=== PATIENT | female | born 1980 | race Two or more races ===

== ENCOUNTER → 2017-12-26 | Outpatient (CLI) | payer OTHER | LOC: FIMAGING 09:16 | PROVIDERS: ATTEND Obstetrics & Gynecology | DX: O09.512 Supervision of elderly primigravida, second trimester (principal); Z3A.24 24 weeks gestation of pregnancy ==

== ENCOUNTER → 2018-02-10 | Outpatient (CLI) | payer OTHER | LOC: FIMAGING 10:30 | PROVIDERS: ATTEND Obstetrics & Gynecology | DX: O09.523 Supervision of elderly multigravida, third trimester (principal); Z3A.30 30 weeks gestation of pregnancy; O99.113 Other diseases of the blood and blood-forming organs and certain disorders involving the immune mechanism complicating pregnancy, third trimester; D68.59 Other primary thrombophilia; Z79.01 Long term (current) use of anticoagulants ==

== ENCOUNTER → 2018-03-17 | Outpatient (CLI) | payer OTHER | LOC: FIMAGING 15:05 | PROVIDERS: ATTEND Obstetrics & Gynecology | DX: O09.523 Supervision of elderly multigravida, third trimester (principal); O40.3XX0 Polyhydramnios, third trimester, not applicable or unspecified; O09.293 Supervision of pregnancy with other poor reproductive or obstetric history, third trimester; O99.113 Other diseases of the blood and blood-forming organs and certain disorders involving the immune mechanism complicating pregnancy, third trimester; D68.59 Other primary thrombophilia; Z3A.35 35 weeks gestation of pregnancy ==

== ENCOUNTER 2018-04-01 12:50 | Observation (INO) | payer OTHER | END 2018-04-01 15:10 | disposition home or self-care (01) | LOC: FLD 12:50 | PROVIDERS: ADMIT Obstetrics & Gynecology; ATTEND Obstetrics & Gynecology | DX: Z03.89 Encounter for observation for other suspected diseases and conditions ruled out (principal); Z3A.37 37 weeks gestation of pregnancy | CPT/HCPCS: 59025; G0378 ==

== ENCOUNTER 2018-04-02 09:30 | Inpatient (IN) | payer OTHER ==
[2018-04-02] MEDS ORDERED: AMMONIA AROMATIC 1 EACH AMP IH PRN (11:06)
[2018-04-02] MEDS ORDERED: LR 1,000 ML IV PRN (11:06)
[2018-04-02] MEDS ORDERED: IBUPROFEN 600 MG TAB PO PRN (11:06)
[2018-04-02] MEDS ORDERED: LIDOCAINE 1% 300 MG/30 ML SDV SC PRN (11:06)
[2018-04-02] MEDS ORDERED: OXYTOCIN/RINGERS LACTATE 1,000 ML IV PRN (11:06)
[2018-04-02] MEDS ORDERED: EPSOM SALT 454 GM TP PRN (11:06)
[2018-04-02] MEDS ORDERED: MISOPROSTOL 200 MCG TAB PO PRN (11:06)
[2018-04-02] MEDS ORDERED: OLIVE OIL 118 ML BTL MISC PRN (11:06)
[2018-04-02] MEDS ORDERED: TERBUTALINE SULFATE 1 MG/ML VIAL IV PRN (11:06)
--- NOTE | 2018-04-02 11:06 | PDGENHP ---
History and Physical - Chief Complaint PPROM - History of Present Illness Cielo is a 37 yo today at 37w6d by ANH of 04/17/18 based on IVF transfer. She was sent over from clinic today with gross ROM with clear fluid - it sounds like she likely actually had her water break at 0600 yesterday AM but then had a false-negative Amnissure here on L&D yesterday and was sent home. Subjectively feeling fine - denies fevers or chills, baby is moving, sensing irregular/rare contractions. She has protein C deficiency and has been on Lovenox 40mg BID throughout until being transitioned to BID heparin at 36 wks. She skipped her morning dose of heparin this morning, so her last dose was at 2000 on 04/01/17. She was recently evaluated by MFM at 35 wks regarding new macrosomia EFW 91% (symmetric) and was also found to have new polydramnios with an CECILIA of 27. That CECILIA was repeated in our office last week and was down to 23. On that MFM US there was also renal pyelectasis. Other issues of this : Macrosomia Anxiety Polyhydramnios Protein C deficiency Recurrent loss IVF Erythema multiforme HSV1 labs: A positive AB negative RPR NR Rubella immune Hep B neg HIV neg Trio neg 2011 Standard panel neg TSH WNL 1st tri Hep C ab neg Varicella IMMUNE Innatal Normal Glucola 131, Passed 3 hr GTT History Information - Allergies/Home Medication List Allergies/Adverse Reactions: No Known Allergies Allergy (Verified 10/07/13 12:04) Home Medications: Vit27&Calcium/Iron/FA [] 1 tab PO DAILY@04/27/13 [Last Taken 10/06/13 08:00] Aspirin 81mg (OTC) 81 mg PO DAILY 10/07/13 [Last Taken 04/01/18 81] Herbals/Supplements -Info Only 10/07/13 [Last Taken 10/06/13 08:00] Vit D3/Folic Acid/B2/B6/B12 1,000 iunits PO DAILY 10/07/13 [Last Taken 10/06/13 08:00] Citalopram Hydrobromide [celeXA 10 MG] 1 tab PO DAILY@04/01/18 [Last Taken Unknown] Cyanocobalamin (Vitamin B-12) [Vitamin B12] 1 tab PO DAILY 04/01/18 [Last Taken Unknown] Ferrous Gluconate [Iron] 240 mg PO DAILY 04/01/18 [Last Taken Unknown] Heparin 1,000 Unit/10 (100/ml) 10,000 units SQ BID 04/01/18 [Last Taken 04/01/18 ] Omeprazole Magnesium [Prilosec] 10 mg PO DAILY 04/01/18 [Last Taken Unknown] Valacyclovir HCl [Valtrex] 1 tab PO BID 04/01/18 [Last Taken Unknown] I have personally reviewed and updated: family history, medical history, social history, surgical history Past Medical History: HSV1, Erythema multiforme, Recurrent loss, Protein C deficiency (dx 2012), IVF, AMA - Surgical History Additional surgical history: D&C x 4, ACL/MCL, Hysteroscopy - Family History Positive for: non-pertinent - Social History Smoking Status: Never smoked Alcohol Use: None 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 Clear fluid, reactive baby, no s/sx of chorioamnionitis. IOL: Discussed options for IOL, will start with oral Cytotec 50mcg q 4 hrs per protocol. Closed and long at last check in the office. Protein C deficiency: Last dose of heparin was 1999 on 04/01/18 - will be 24 hrs s /p her last dose this evening so probably OK for regional anesthesia, will check coags on the way in today. Per recent MFM consult - May not need PP Lovenox as long as new risk factors (infection, Csection, PIH, etc) don't present themselves during labor and delivery. Polyhydramnios: Failed Glucola and passed 3 hr GTT. Clear fluid thus far, head well engaged. HSV1: Continue Valtrex BID suppression. 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 IVF : Normal echo. Anxiety: Celexa 10mg qHS. Suspected macrosomia: EFW 91% at 35 wks. pyelectasis: 7.8mm on 35 wk scan, MFM recommended US and peds urology consult if needed after . LAURA
[2018-04-02] MEDS: MISOPROSTOL 50 MCG CAP PO PRN ×2 (12:24→16:33)
[2018-04-02 13:01] LABS: PLATELET COUNT 208 10^3/uL (150-400)
[2018-04-02 13:29] LABS: INR 1.02 (0.83-1.16); PROTIME(PATIENT) 13.6 SEC (12.0-15.0)
[2018-04-02 14:32] LABS: PLATELET COUNT 208 10^3/uL (150-400)
[2018-04-02] MEDS ORDERED: LIDOCAINE 1% 300 MG/30 ML SDV ONE (14:46)
[2018-04-02] MEDS ORDERED: OLIVE OIL 118 ML BTL ONE (14:46)
[2018-04-02] MEDS ORDERED: MISOPROSTOL 200 MCG TAB ONE (14:47)
[2018-04-02] MEDS ORDERED: AMMONIA AROMATIC 1 EACH AMP IH ONE (14:47)
[2018-04-02] MEDS ORDERED: TERBUTALINE SULFATE 1 MG/ML VIAL ONE (14:47)
[2018-04-02] MEDS ORDERED: OXYTOCIN 10 UNIT/ML VIAL ONE (14:47)
[2018-04-02] MEDS: valACYclovir 500 MG TAB PO SCH (20:43)
[2018-04-02] MEDS: PRENATAL VIT 1 EACH TAB PO SCH (20:57)
[2018-04-02] MEDS: CITALOPRAM 20 MG TAB PO SCH (20:58)
[2018-04-02] MEDS ORDERED: ZOLPIDEM TARTRATE 5 MG TAB PO PRN (21:30)
[2018-04-02] MEDS ORDERED: LR 500 ML IV PRN (21:38)
[2018-04-02] MEDS: FAMOTIDINE 20 MG TAB PO SCH (21:52)
[2018-04-03] MEDS ORDERED: OXYTOCIN/RINGERS LACTATE 500 ML IV SCH (05:00)
[2018-04-03] MEDS ORDERED: CALCIUM CARBONATE 500 MG CHEWABLE TAB PO ONE ×2 (05:00→22:00)
[2018-04-03] MEDS: ONDANSETRON 4 MG/2 ML VIAL IVP PRN ×2 (07:31→17:39)
[2018-04-03] MEDS: FAMOTIDINE 20 MG TAB PO SCH ×2 (10:05→13:27)
--- NOTE | 2018-04-03 10:33 | OBPROG ---
Labor Progress Note Assessment/Plan: Assessment: 37 y/o at 38 weeks with prolonged ROM for approximately 52 hours now for IOL Plan: Pt is s/p Cytotec x 3 doses Pitocin currently at 12 mu, cont per protocol SVE: 1cm/50/-1, head well applied Pt is afebrile at this time and no s/sx of chorioamnionitis Pt is getting minimal relief with Nitrous Pt with Protein C def and last dose of Heparin 1999 on 04/01, okay for regional anesthesia; pt is requesting epidural at this time Per recent MFM consult - pt may not need PP Lovenox as long as new risk factors (infection, , PIH, etc) don't present themselves during labor and delivery FHTs - Category I tracing, will cont to closely monitor GBS cx is negative, no prophylaxis abx needed 04/03/18 10:42 Subjective/Intrapartum Course: 04/03/18 10:35 Pt is breathing through her ctx's and states minimal relief with Nitrous. Most of her pain is in her back and hips, pain 7-8/10. She is requesting an epidural at this time. Objective: 04/02/18 12:20 Patient ABO/Rh A POSITIVE 04/02/18 12:20 - SVE Dilation (cm): 1 Effacement (%): 50 Station: -1 Membranes: SROM Amniotic Fluid Color: Clear - Contraction Pattern Assessment Current Contraction Pattern: Regular (q 2-4 min) - FHR Assessment Guzman FHR (bpm): 150 FHR Pattern Variability: Moderate FHR Category: 1 - AP Antepartum Course: 04/03/18 10:43 Protein C deficiency: Last dose of heparin was 1999 on 04/01/18 - will be 24 hrs s /p her last dose this evening so probably OK for regional anesthesia, will check coags on the way in today. Per recent MFM consult - May not need PP Lovenox as long as new risk factors (infection, Csection, PIH, etc) don't present themselves during labor and delivery. Polyhydramnios: Failed Glucola and passed 3 hr GTT. HSV1: Valtrex BID suppression. 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 IVF : Normal echo. Anxiety: Celexa 10mg qHS. Suspected macrosomia: EFW 91% at 35 wks. pyelectasis: 7.8mm on 35 wk scan, MFM recommended US and peds urology consult if needed after . Oxytocin Orders Assessment - Pre-Induction/Augmentation Assessment Gestational Age: 37 week(s) and 6 day(s) ICD10 Worksheet Patient Problems: Problems Problem Status Onset Prolonged rupture of membranes Acute - ICD10 Problem Qualifiers (1) Prolonged rupture of membranes
[2018-04-03] MEDS ORDERED: PHENYLEPHRINE HCL 100 MCG/ML SYR IVP PRN (10:41)
--- NOTE | 2018-04-03 10:41 | PREANESOB ---
Obstetric Pre-Anesthesia Info - General Info : 6 Para: 0 ANH: 04/17/18 Gestational Age: 37 week(s) and 6 day(s) - Labor Status Cervical Dilation per last OB SVE: 1 Station per last OB SVE: -1 Amniotic Fluid Color: Clear Pitocin: In Use Labor Epidural: Proposed Anesthesia Allergies/Adverse Reactions: Allergy/AdvReac Type Severity Reaction Status Date / Time No Known Allergies Allergy Verified 10/07/13 12:04 Home Medications: Medication Instructions Recorded Vit27&Calcium/Iron/FA 1 tab PO DAILY@04/27/13 [] Aspirin 81mg (OTC) 81 mg PO DAILY 10/07/13 Herbals/Supplements -Info Only 10/07/13 Vit D3/Folic Acid/B2/B6/B12 1,000 iunits PO DAILY 10/07/13 Citalopram Hydrobromide [celeXA 10 1 tab PO DAILY@04/01/18 MG] Cyanocobalamin (Vitamin B-12) 1 tab PO DAILY 04/01/18 [Vitamin B12] Ferrous Gluconate [Iron] 240 mg PO DAILY 04/01/18 Heparin 1,000 Unit/10 (100/ml) 10,000 units SQ BID 04/01/18 Omeprazole Magnesium [Prilosec] 10 mg PO DAILY 04/01/18 Valacyclovir HCl [Valtrex] 1 tab PO BID 04/01/18 Visit Medications: Generic Name Dose Route Start Last Admin Trade Name Freq PRN Reason Stop Dose Admin Acetaminophen 1,000 mg 04/03/18 10:38 Tylenol PO 09/30/18 10:37 Q6HRS PRN Pain, Mild/Fever, Can Take PO Ammonia (Aromatic Spirit) 1 each 04/02/18 11:06 Ammonia Aromatic IH 04/12/18 11:05 ONCE PRN Fainting Citalopram Hydrobromide 10 mg 04/02/18 21:00 04/02/18 20:58 Celexa PO 09/29/18 20:59 10 mg DAILY@2100 RELL Administration Famotidine 20 mg 04/02/18 21:45 04/03/18 10:05 Pepcid PO 09/29/18 21:44 Not Given DAILY RELL Lactated Ringer's 1,000 mls @ 0 mls/hr 04/02/18 11:06 04/03/18 05:31 Lr IV 04/03/18 11:05 1,000 mls PRN PRN Administration SEE PROTOCOL CONDITIONS Protocol Per Protocol Oxytocin/Lactated Ringer's 1,000 mls @ 0 mls/hr 04/02/18 11:06 Pitocin 20 Units/Lr (Premix) IV PRN PRN Post bleeding As Directed Lactated Ringer's 500 mls @ 500 mls/hr 04/02/18 21:38 Lr IV 04/03/18 21:38 PRN PRN Maternal Hypotension Oxytocin/Lactated Ringer's 500 mls @ 0 mls/hr 04/03/18 05:00 04/03/18 05:30 Pitocin 30 Units/Lr (Premix) IV 09/30/18 04:59 500 mls CONT RELL Administration Protocol Per Protocol Ibuprofen 600 mg 04/02/18 11:06 Motrin PO ONCE PRN post , pain Lidocaine HCl 300 mg 04/02/18 11:06 Lidocaine Hcl 1% SC 09/29/18 11:05 ONCE PRN episiotomy Magnesium Sulfate 454 gm 04/02/18 11:06 Epsom Salt TP 09/29/18 11:05 Q1H PRN perineal discomfort Misoprostol 800 - 1,000 mcg 04/02/18 11:06 Cytotec PO 09/29/18 11:05 ONCE PRN Vaginal Atony/Bleeding Misoprostol 50 mcg 04/02/18 11:13 04/02/18 16:33 Cytotec PO 09/29/18 11:12 50 mcg Q4HRS PRN Administration Achieve Desired Sedation Plover Oil 118 ml 04/02/18 11:06 Sweet Oil MISC 09/29/18 11:05 ONCE PRN perineal massage Ondansetron HCl 4 mg 04/03/18 07:24 04/03/18 07:31 Zofran IVP 09/30/18 07:23 4 mg Q4HRS PRN Administration Nausea/Vomiting, Can't Take PO Prenat Multivit/Telephone Lines Repairer/Iron/Folic Ac 1 each 04/02/18 21:00 04/02/18 20:57 PO 09/29/18 20:59 1 each DAILY@2100 RELL Administration Terbutaline Sulfate 0.25 mg 04/02/18 11:06 Brethine IV 09/29/18 11:05 ONCE PRN Tachysystole Valacyclovir HCl 1,000 mg 04/02/18 21:00 04/02/18 20:43 Valtrex PO 05/02/18 20:59 1,000 mg BID RELL Administration Zolpidem Tartrate 5 mg 04/02/18 21:30 04/02/18 21:53 Ambien PO 09/29/18 21:29 5 mg HS PRN Administration Sleep/Insomnia Discontinued Medications Generic Name Dose Route Start Last Admin Trade Name Osiris PRN Reason Stop Dose Admin Ammonia (Aromatic Spirit) Confirm 04/02/18 14:47 Ammonia Aromatic Administered 04/02/18 14:48 Dose 1 each IH .STK-MED ONE Calcium Carbonate 1,000 mg 04/03/18 05:00 04/03/18 05:09 Tums PO 04/03/18 05:01 1,000 mg ONCE ONE Administration Lidocaine HCl Confirm 04/02/18 14:46 Lidocaine Hcl 1% Administered 04/02/18 14:47 Dose 300 mg .ROUTE .STK-MED ONE Misoprostol Confirm 04/02/18 14:47 Cytotec Administered 04/02/18 14:48 Dose 1,000 mcg .ROUTE .STK-MED ONE Plover Oil Confirm 04/02/18 14:46 Sweet Oil Administered 04/02/18 14:47 Dose 118 ml .ROUTE .STK-MED ONE Oxytocin Confirm 04/02/18 14:47 Pitocin Administered 04/02/18 14:48 Dose 40 unit .ROUTE .STK-MED ONE Terbutaline Sulfate Confirm 04/02/18 14:47 Brethine Administered 04/02/18 14:48 Dose 1 mg .ROUTE .STK-MED ONE - Anesthesia History Response to Local Anesthetics: Normal Anesthesia & Operative History: No Prior Problems - Vital Signs Height/Weight (Nursing): Height 160.02 cm Weight 62.596 kg - Focused Exam Neck exam: FROM Mallampati Score: Class 1 Mouth exam: normal dental/mouth exam Pulmonary: no respiratory distress Cardiovascular: regular rate and rhythym Labs: 04/02/18 12:20 Patient ABO/Rh A POSITIVE 04/02/18 12:20 - Plan Consent Signed and on Chart: Yes Patient/Guardian Understands and Agrees to Plan: Yes Urgent/Emergent Case: Juancarlos power completed preop but documented later for safe timely pt care (Pt had heparin stop >36 hours.)
[2018-04-03] MEDS ORDERED: fentaNYL 100 MCG/2 ML INJ ONE (10:45)
[2018-04-03] MEDS ORDERED: BUPIVACAINE 0.25% 10 ML SDV ONE (10:46)
[2018-04-03] MEDS ORDERED: fentaNYL 2MCG/ML/BUP 0.1% RTU 100 ML EP SCH (11:00)
[2018-04-03] MEDS ORDERED: FAMOTIDINE 20 MG TAB PO SCH (11:00)
[2018-04-03] MEDS ORDERED: LR 500 ML IV SCH (11:00)
[2018-04-03] MEDS: valACYclovir 500 MG TAB PO SCH (12:31)
[2018-04-03] MEDS: ACETAMINOPHEN 500 MG TAB PO PRN ×2 (12:35→18:46)
--- NOTE | 2018-04-03 13:12 | OBPROG ---
Labor Progress Note Assessment/Plan: Assessment: 37 y/o at 38 weeks with prolonged ROM for approximately 55 hours now for IOL Plan: Pt is s/p epidural and comfortable at this time Pitocin currently at 18 mu, cont per protocol Pt remains afebrile and no s/sx of chorioamnionitis FHTs - Category II tracing with intermittent late decels, likely secondary to epidural and HOTN-pt received phenylephrine x 2 Will cont to closely monitor Plan to reexamine in a few hours and hopefully can place an IUPC to monitor for labor adequacy 04/03/18 13:07 Subjective/Intrapartum Course: 04/03/18 10:35 Pt is breathing through her ctx's and states minimal relief with Nitrous. Most of her pain is in her back and hips, pain 7-8/10. She is requesting an epidural at this time. 04/03/18 13:12 Pt is comfortable, s/p epidural with no complaints Objective: 04/02/18 12:20 Patient ABO/Rh A POSITIVE 04/02/18 12:20 - SVE Membranes: SROM Amniotic Fluid Color: Clear - Contraction Pattern Assessment Current Contraction Pattern: Irregular (q3-8 min) - FHR Assessment Guzman FHR (bpm): 140 FHR Pattern Variability: Moderate FHR Category: 2 (intermittent late decels after epidural lasting x 20-30 sec with amanda 100 bpm) - AP Antepartum Course: 04/03/18 10:43 Protein C deficiency: Last dose of heparin was 2000 on 04/01/18 - will be 24 hrs s /p her last dose this evening so probably OK for regional anesthesia, will check coags on the way in today. Per recent MFM consult - May not need PP Lovenox as long as new risk factors (infection, Csection, PIH, etc) don't present themselves during labor and delivery. Polyhydramnios: Failed Glucola and passed 3 hr GTT. HSV1: Valtrex BID suppression. 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 IVF : Normal echo. Anxiety: Celexa 10mg qHS. Suspected macrosomia: EFW 91% at 35 wks. pyelectasis: 7.8mm on 35 wk scan, MFM recommended US and peds urology consult if needed after . Oxytocin Orders Assessment - Pre-Induction/Augmentation Assessment Gestational Age: 37 week(s) and 6 day(s) ICD10 Worksheet Patient Problems: Problems Problem Status Onset Prolonged rupture of membranes Acute - ICD10 Problem Qualifiers (1) Prolonged rupture of membranes
--- NOTE | 2018-04-03 17:27 | OBPROG ---
Labor Progress Note Assessment/Plan: Assessment: 37 y/o at 38 weeks with prolonged ROM for IOL Plan: Pitocin currently at 30 mu/min SVE 3/70/0; forebag noted-pinkish fluid; IUPC placed Pt remains afebrile and no s/sx of chorioamnionitis at this time FHTs - Category II tracing, overall reassuring-there was one decel noted during maternal position change and again 15 minutes after ROM-forebag Will cont to closely monitor Pt may eat something light 04/03/18 17:32 Subjective/Intrapartum Course: 04/03/18 10:35 Pt is breathing through her ctx's and states minimal relief with Nitrous. Most of her pain is in her back and hips, pain 7-8/10. She is requesting an epidural at this time. 04/03/18 13:12 Pt is comfortable, s/p epidural with no complaints 04/03/18 17:26 Pt doing well, no complaints. She would like something to eat Objective: 04/02/18 12:20 Patient ABO/Rh A POSITIVE 04/02/18 12:20 - SVE Dilation (cm): 3 Effacement (%): 75 (70) Station: 0 Membranes: SROM Amniotic Fluid Color: Clear - Contraction Pattern Assessment Current Contraction Pattern: Irregular (q2 -6 min) - FHR Assessment Guzman FHR (bpm): 155 FHR Pattern Variability: Moderate FHR Category: 2 (decel noted about 10 minutes after rupture of forebag and IUPC placed; decel x 30 sec with amanda 60 bpm) - Procedures Non-surgical Procedures: Amniotomy (of forebag) - AP Antepartum Course: 04/03/18 10:43 Protein C deficiency: Last dose of heparin was 1999 on 04/01/18 - will be 24 hrs s /p her last dose this evening so probably OK for regional anesthesia, will check coags on the way in today. Per recent MFM consult - May not need PP Lovenox as long as new risk factors (infection, Csection, PIH, etc) don't present themselves during labor and delivery. Polyhydramnios: Failed Glucola and passed 3 hr GTT. HSV1: Valtrex BID suppression. 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 IVF : Normal echo. Anxiety: Celexa 10mg qHS. Suspected macrosomia: EFW 91% at 35 wks. pyelectasis: 7.8mm on 35 wk scan, M recommended US and peds urology consult if needed after . Oxytocin Orders Assessment - Pre-Induction/Augmentation Assessment Gestational Age: 37 week(s) and 6 day(s) ICD10 Worksheet Patient Problems: Problems Problem Status Onset Prolonged rupture of membranes Acute - ICD10 Problem Qualifiers (1) Prolonged rupture of membranes
[2018-04-03] MEDS: PRENATAL VIT 1 EACH TAB PO SCH (23:31)
[2018-04-04] MEDS: ACETAMINOPHEN 500 MG TAB PO PRN (01:59)
--- NOTE | 2018-04-04 02:10 | OBPROG ---
Labor Progress Note Assessment/Plan: Assessment: 37 y/o at 38 1/7 weeks with prolonged ROM for IOL Plan: Pitocin is currently at 40 mu/min SVE: 5/90/0; forebag noted; IUPC removed and AROM of forebag with clear fluid Dysfunctional uterine pattern noted, no adequate labor yet despite Pitocin at 40 mu New IUPC placed Will turn Pitocin down in half and start from there Pt remains afebrile and no s/sx of chorioamnionitis at this time FHTs - Category II tracing with intermittent mild variable decels, overall reassuring Will recheck in 2 hours for cervical change 04/04/18 02:05 Subjective/Intrapartum Course: 04/03/18 10:35 Pt is breathing through her ctx's and states minimal relief with Nitrous. Most of her pain is in her back and hips, pain 7-8/10. She is requesting an epidural at this time. 04/03/18 13:12 Pt is comfortable, s/p epidural with no complaints. 04/03/18 17:26 Pt doing well, no complaints. She would like something to eat. 04/04/18 02:10 Pt is c/o SAMANIEGO at this time. She is comfortable and has used the bolus button. Objective: 04/02/18 12:20 Patient ABO/Rh A POSITIVE 04/02/18 12:20 - SVE Dilation (cm): 5 Effacement (%): 90 Station: 0 Membranes: SROM, Intact Amniotic Fluid Color: Clear - Contraction Pattern Assessment Current Contraction Pattern: Irregular (q3 -6 min) - FHR Assessment Guzman FHR (bpm): 140 FHR Pattern Variability: Moderate FHR Category: 2 (mild intermittent variable decels) - Procedures Non-surgical Procedures: Amniotomy (of forebag - clear) - AP Antepartum Course: 04/03/18 10:43 Protein C deficiency: Last dose of heparin was 1999 on 04/01/18 - will be 24 hrs s /p her last dose this evening so probably OK for regional anesthesia, will check coags on the way in today. Per recent MFM consult - May not need PP Lovenox as long as new risk factors (infection, Csection, PIH, etc) don't present themselves during labor and delivery. Polyhydramnios: Failed Glucola and passed 3 hr GTT. HSV1: Valtrex BID suppression. 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 IVF : Normal echo. Anxiety: Celexa 10mg qHS. Suspected macrosomia: EFW 91% at 35 wks. pyelectasis: 7.8mm on 35 wk scan, MFM recommended US and peds urology consult if needed after . Oxytocin Orders Assessment - Pre-Induction/Augmentation Assessment Gestational Age: 37 week(s) and 6 day(s) ICD10 Worksheet Patient Problems: Problems Problem Status Onset Prolonged rupture of membranes Acute - ICD10 Problem Qualifiers (1) Prolonged rupture of membranes
[2018-04-04] MEDS: valACYclovir 500 MG TAB PO SCH ×4 (03:59→23:23)
[2018-04-04] MEDS: CITALOPRAM 20 MG TAB PO SCH ×2 (04:00→20:21)
--- NOTE | 2018-04-04 04:44 | OBPROG ---
Labor Progress Note Assessment/Plan: Assessment: 37 y/o at 38 1/7 weeks with prolonged ROM for IOL Plan: Pitocin is currently at 28 mu/min, cont per protocol SVE: 6/100/+1, suspect LOP Dysfunctional uterine pattern still noted with MVUs <120 Pt remains afebrile and no s/sx of chorioamnionitis at this time FHTs - Category I tracing, reassuring Had a long discussion with pt regarding dysfunctional uterine pattern and slow cervical change and possible ; discussed prolonged rupture of membranes at 72 hours at 0615 this am; pt wants to continue current management at this time; she got some sleep and her SAMANIEGO resolved Pt on left side with peanut ball 04/04/18 04:45 Subjective/Intrapartum Course: 04/03/18 10:35 Pt is breathing through her ctx's and states minimal relief with Nitrous. Most of her pain is in her back and hips, pain 7-8/10. She is requesting an epidural at this time. 04/03/18 13:12 Pt is comfortable, s/p epidural with no complaints. 04/03/18 17:26 Pt doing well, no complaints. She would like something to eat. 04/04/18 02:10 Pt is c/o SAMANIEGO at this time. She is comfortable and has used the bolus button. 04/04/18 04:45 Pt is sleeping and states SAMANIEGO resolved. Objective: 04/02/18 12:20 Patient ABO/Rh A POSITIVE 04/02/18 12:20 - SVE Dilation (cm): 6 (bloody show noted) Effacement (%): 100 Station: +1 Membranes: SROM Amniotic Fluid Color: Clear - Contraction Pattern Assessment Current Contraction Pattern: Irregular (q2 -6 min) - FHR Assessment Guzman FHR (bpm): 130 FHR Pattern Variability: Moderate FHR Category: 1 - Procedures Non-surgical Procedures: Amniotomy (of forebag - clear) - AP Antepartum Course: 04/03/18 10:43 Protein C deficiency: Last dose of heparin was 1999 on 04/01/18 - will be 24 hrs s /p her last dose this evening so probably OK for regional anesthesia, will check coags on the way in today. Per recent MFM consult - May not need PP Lovenox as long as new risk factors (infection, Csection, PIH, etc) don't present themselves during labor and delivery. Polyhydramnios: Failed Glucola and passed 3 hr GTT. HSV1: Valtrex BID suppression. 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 IVF : Normal echo. Anxiety: Celexa 10mg qHS. Suspected macrosomia: EFW 91% at 35 wks. pyelectasis: 7.8mm on 35 wk scan, M recommended US and peds urology consult if needed after . Oxytocin Orders Assessment - Pre-Induction/Augmentation Assessment Gestational Age: 37 week(s) and 6 day(s) ICD10 Worksheet Patient Problems: Problems Problem Status Onset Prolonged rupture of membranes Acute - ICD10 Problem Qualifiers (1) Prolonged rupture of membranes
[2018-04-04] MEDS ORDERED: GENTAMICIN 80 MG/NACL 100 ML IV SCH (07:00)
[2018-04-04] MEDS ORDERED: CLINDAMYCIN 900 MG/DEXTROSE 50 ML IV ONE (07:04)
--- NOTE | 2018-04-04 07:04 | OBPROG ---
Labor Progress Note Assessment/Plan: Assessment: 37 y/o at 38 1/7 weeks with prolonged ROM now 72 hours with chorio Plan: Patient febrile at 0615 with temp 38.0 and now FHTs tachy in 170's Will start Amp and Gent for suspected chorio; CROWN BUFFER notified Pitocin is currently at 34 mu/min and still not adequate SVE: 6-7/100/+1, suspect LOP - not much cervical change noted Again, had a long discussion with pt regarding dysfunctional uterine pattern and minimal cervical change and now chorio and the need for delivery by c- section Surgical consents obtained; discussed R/B/A with pt including but not limited to bleeding, infection and damage to surrounding organs Pt understands all risks of surgery and wants to proceed at this time Will add 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 Most of her pain is in her back and hips, pain 7-8/10. She is requesting an epidural at this time. 04/03/18 13:12 Pt is comfortable, s/p epidural with no complaints. 04/03/18 17:26 Pt doing well, no complaints. She would like something to eat. 04/04/18 02:10 Pt is c/o SAMANIEGO at this time. She is comfortable and has used the bolus button. 04/04/18 04:45 Pt is sleeping and states SAMANIEGO resolved. 04/04/18 07:15 Pt is c/o feeling shaky, but no chills. She is starting to feel more back pain, but using bolus for relief. Objective: 04/02/18 12:20 Patient ABO/Rh A POSITIVE 04/02/18 12:20 - SVE Dilation (cm): 6 (6-7) Effacement (%): 100 Station: +1 Membranes: SROM Amniotic Fluid Color: Clear - Contraction Pattern Assessment Current Contraction Pattern: Irregular (q2 -6 min) - FHR Assessment Guzman FHR (bpm): 170 FHR Pattern Variability: Moderate FHR Category: 1 - Procedures Non-surgical Procedures: Amniotomy (of forebag - clear) - AP Antepartum Course: 04/03/18 10:43 Protein C deficiency: Last dose of heparin was 1999 on 04/01/18 - will be 24 hrs s /p her last dose this evening so probably OK for regional anesthesia, will check coags on the way in today. Per recent MFM consult - May not need PP Lovenox as long as new risk factors (infection, Csection, PIH, etc) don't present themselves during labor and delivery. Polyhydramnios: Failed Glucola and passed 3 hr GTT. HSV1: Valtrex BID suppression. 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 IVF : Normal echo. Anxiety: Celexa 10mg qHS. Suspected macrosomia: EFW 91% at 35 wks. pyelectasis: 7.8mm on 35 wk scan, MFM recommended US and peds urology consult if needed after . Oxytocin Orders Assessment - Pre-Induction/Augmentation Assessment Gestational Age: 37 week(s) and 6 day(s) ICD10 Worksheet Patient Problems: Problems Problem Status Onset Prolonged rupture of membranes Acute - ICD10 Problem Qualifiers (1) Prolonged rupture of membranes
[2018-04-04] MEDS ORDERED: fentaNYL 100 MCG/2 ML INJ IVP PRN ×2 (07:33→09:41)
[2018-04-04] MEDS ORDERED: OXYCODONE/APAP 5/325 TAB PO PRN (07:33)
[2018-04-04] MEDS ORDERED: HYDROmorphONE/DILAUDID 1 MG/ML INJ IVP PRN (07:33)
[2018-04-04] MEDS ORDERED: CITRIC ACID/SODIUM CITRATE 30 ML UDCUP PO ONE (07:36)
[2018-04-04] MEDS ORDERED: LIDO/EPI 2% **for epidural** 20 ML SDV ONE (07:43)
[2018-04-04] MEDS ORDERED: ONDANSETRON 4 MG/2 ML VIAL ONE (07:44)
[2018-04-04] MEDS ORDERED: METOCLOPRAMIDE 10 MG/2 ML VIAL ONE (07:44)
[2018-04-04] MEDS ORDERED: OXYTOCIN 100 UNITS/10 ML VIAL ONE (07:45)
[2018-04-04] MEDS: AMPICILLIN SODIUM 2 GM in NS 100 ML IV SCH ×2 (07:46→18:09)
--- NOTE | 2018-04-04 08:16 | OBPROG ---
Labor Progress Note Assessment/Plan: Assessment: 37 y/o @ 38 1/7 weeks with SROM > 72 hours with inadequate labor contractions, arrest of dilation and now chorioamnionitis Plan: I emphasized the need for c section delivery now. Pt has been refractory to high doses of pitocin now with fever, maternal and tachycardia. She has received Ampicillin, Gentamycin and now 1 dose of Clindamycin. Pt and her family are in agreement. 04/04/18 08:13 Subjective/Intrapartum Course: 04/03/18 10:35 Pt is breathing through her ctx's and states minimal relief with Nitrous. Most of her pain is in her back and hips, pain 7-8/10. She is requesting an epidural at this time. 04/03/18 13:12 Pt is comfortable, s/p epidural with no complaints. 04/03/18 17:26 Pt doing well, no complaints. She would like something to eat. 04/04/18 02:10 Pt is c/o SAMANIEGO at this time. She is comfortable and has used the bolus button. 04/04/18 04:45 Pt is sleeping and states SAMANIEGO resolved. 04/04/18 07:15 Pt is c/o feeling shaky, but no chills. She is starting to feel more back pain, but using bolus for relief. 04/04/18 08:11 I cam in this am to take over care. Pt is feeling a little better now, with antibiotics on board. She is comfortable with her epidural and now ready for a c section. Objective: 04/02/18 12:20 Patient ABO/Rh A POSITIVE 04/02/18 12:20 - SVE Dilation (cm): 6 Effacement (%): 100 Station: +1 (according to exam by Dr. Agustin) Membranes: SROM Amniotic Fluid Color: Clear - Contraction Pattern Assessment Current Contraction Pattern: Irregular (q2 -6 min) - FHR Assessment Guzman FHR (bpm): 160 FHR Pattern Variability: Minimal FHR Category: 2 - Procedures Non-surgical Procedures: Amniotomy (of forebag - clear), IUPC - AP Antepartum Course: 04/03/18 10:43 Protein C deficiency: Last dose of heparin was 1999 on 04/01/18 - will be 24 hrs s /p her last dose this evening so probably OK for regional anesthesia, will check coags on the way in today. Per recent MFM consult - May not need PP Lovenox as long as new risk factors (infection, Csection, PIH, etc) don't present themselves during labor and delivery. Polyhydramnios: Failed Glucola and passed 3 hr GTT. HSV1: Valtrex BID suppression. 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 IVF : Normal echo. Anxiety: Celexa 10mg qHS. Suspected macrosomia: EFW 91% at 35 wks. pyelectasis: 7.8mm on 35 wk scan, MFM recommended US and peds urology consult if needed after . Oxytocin Orders Assessment - Pre-Induction/Augmentation Assessment Gestational Age: 37 week(s) and 6 day(s) ICD10 Worksheet Patient Problems: Problems Problem Status Onset Prolonged rupture of membranes Acute
[2018-04-04] MEDS ORDERED: morphINE PF 5 MG/10 ML INJ ONE (08:44)
[2018-04-04] MEDS ORDERED: METHYLERGONOVINE MAL 0.2 MG/ML INJ ONE (08:48)
[2018-04-04] MEDS ORDERED: oxyCODONE IR 5 MG TAB PO PRN (09:33)
[2018-04-04] MEDS ORDERED: SIMETHICONE 80 MG TAB CHEW PO PRN (09:33)
[2018-04-04] MEDS ORDERED: PROMETHAZINE HCL 25 MG/ML INJ IVP PRN (09:33)
[2018-04-04] MEDS ORDERED: DOCUSATE SODIUM 100 MG CAP PO PRN (09:33)
[2018-04-04] MEDS ORDERED: BISACODYL 10 MG SUPP PR PRN (09:39)
[2018-04-04] MEDS ORDERED: MAGNESIUM HYDROXIDE 30 ML UDCUP PO PRN (09:39)
[2018-04-04] MEDS ORDERED: LACTULOSE 20 GM/30 ML UDCUP PO PRN (09:39)
[2018-04-04] MEDS ORDERED: POLYETHYLENE GLYCOL 3350 17 GM PKT PO PRN (09:39)
[2018-04-04] MEDS ORDERED: NALOXONE HCL 0.4 MG/ML INJ IVP PRN (09:41)
[2018-04-04] MEDS ORDERED: ALBUTEROL 3 ML DEYVIAL IH PRN (09:41)
[2018-04-04] MEDS ORDERED: ONDANSETRON 4 MG/2 ML VIAL IVP PRN (09:41)
[2018-04-04] MEDS ORDERED: HYDROCODONE/APAP 5/325 TAB PO PRN (09:41)
[2018-04-04] MEDS ORDERED: HYDROmorphONE/DILAUDID 2 MG/ML INJ IVP PRN (09:41)
[2018-04-04] MEDS ORDERED: DEXAMETHASONE 4 MG/ML VIAL IVP PRN (09:41)
--- NOTE | 2018-04-04 09:44 | POSTANESTH ---
Post Anesthetic Evaluation Cardiovascular Status: Normal, Stable Respiratory Status: Normal, Stable Level of Consciousness/Mental Status: Can Participate in Eval, Alert and Oriented Pain Control: Adequate, Prn Tx Ordered Nausea/Vomiting Control: Adequate, Prn Tx Ordered Complications Possibly Related to Anesthesia: None Noted
--- NOTE | 2018-04-04 09:45 | OBDEL ---
Info Type: Primary Presentation at Delivery: Vertex L&D Analgesia/Anesthesia Type: Epidural GBS+: No Intrapartum Medications: Generic Name Dose Route Start Last Admin Trade Name Merrillq PRN Reason Stop Dose Admin Acetaminophen 1,000 mg 04/03/18 10:38 04/04/18 01:59 Tylenol PO 09/30/18 10:37 1,000 mg Q6HRS PRN Administration Pain, Mild/Fever, Can Take PO Citalopram Hydrobromide 10 mg 04/02/18 21:00 04/04/18 04:00 Celexa PO 09/29/18 20:59 Not Given DAILY@2100 RELL Famotidine 20 mg 04/02/18 21:45 04/03/18 13:27 Pepcid PO 09/29/18 21:44 20 mg DAILY RELL Administration Oxytocin/Lactated Ringer's 500 mls @ 0 mls/hr 04/03/18 05:00 04/03/18 05:30 Pitocin 30 Units/Lr (Premix) IV 09/30/18 04:59 500 mls CONT RELL Administration Protocol Per Protocol Fentanyl/Bupivacaine HCl 100 mls @ 0 mls/hr 04/03/18 11:00 04/03/18 22:30 Fentanyl/Bupivacaine/Ns 2 Mcg/Ml 0.1% (Premix EP 04/13/18 10:59 100 mls CONT RELL Administration Protocol As Directed Ampicillin Sodium 2 gm/ Sodium 110 mls @ 220 mls/hr 04/04/18 07:45 04/04/18 07:46 Chloride IV 05/04/18 07:44 110 mls Q6HRS RELL Administration Protocol Gentamicin Sulfate/Sodium Chloride 100 mls @ 100 mls/hr 04/04/18 07:00 07:16 Gentamicin 80 Mg (Premix) IV 05/04/18 06:59 100 mls Q8H RELL Administration Protocol Misoprostol 50 mcg 04/02/18 11:13 04/02/18 16:33 Cytotec PO 09/29/18 11:12 50 mcg Q4HRS PRN Administration Achieve Desired Sedation Ondansetron HCl 4 mg 04/03/18 07:24 04/03/18 17:39 Zofran IVP 09/30/18 07:23 4 mg Q4HRS PRN Administration Nausea/Vomiting, Can't Take PO Prenat Multivit/Ina/Iron/Folic Ac 1 each 04/02/18 21:00 04/03/18 23:31 PO 09/29/18 20:59 Not Given DAILY@2100 [facility] Valacyclovir HCl 1,000 mg 04/02/18 21:00 04/04/18 03:59 Valtrex PO 05/02/18 20:59 Not Given BID [facility] Zolpidem Tartrate 5 mg 04/02/18 21:30 04/02/18 21:53 Ambien PO 09/29/18 21:29 5 mg HS PRN Administration Sleep/Insomnia Discontinued Medications Generic Name Dose Route Start Last Admin Trade Name Freq PRN Reason Stop Dose Admin Calcium Carbonate 1,000 mg 04/03/18 05:00 04/03/18 05:09 Tums PO 04/03/18 05:01 1,000 mg ONCE ONE Administration Calcium Carbonate 1,000 mg 04/03/18 22:00 04/03/18 22:39 Tums PO 04/03/18 22:01 1,000 mg ONCE ONE Administration Lactated Ringer's 1,000 mls @ 0 mls/hr 04/02/18 11:06 04/03/18 05:31 Lr IV 04/03/18 11:05 1,000 mls PRN PRN Administration SEE PROTOCOL CONDITIONS Protocol Per Protocol Clindamycin Phosphate/Dextrose 50 mls @ 100 mls/hr 04/04/18 07:04 04/04/18 08 :13 Cleocin 900 Mg (Premix) IV 04/04/18 07:33 50 mls ONCALL ONE Administration Protocol - Hospital Course Intrapartum: 04/03/18 10:35 Pt is breathing through her ctx's and states minimal relief with Nitrous. Most of her pain is in her back and hips, pain 7-8/10. She is requesting an epidural at this time. 04/03/18 13:12 Pt is comfortable, s/p epidural with no complaints. 04/03/18 17:26 Pt doing well, no complaints. She would like something to eat. 04/04/18 02:10 Pt is c/o SAMANIEGO at this time. She is comfortable and has used the bolus button. 04/04/18 04:45 Pt is sleeping and states SAMANIEGO resolved. 04/04/18 07:15 Pt is c/o feeling shaky, but no chills. She is starting to feel more back pain, but using bolus for relief. 04/04/18 08:11 I cam in this am to take over care. Pt is feeling a little better now, with antibiotics on board. She is comfortable with her epidural and now ready for a c section. Indications for Delivery: SROM (> 72 hours) Vaginal Delivery - Labor and Delivery Amniotic Fluid Color: Clear Non-surgical Procedures: Amniotomy (of forebag - clear), IUPC Cord Gases: Cord Gases Cord Blood PCO2 41.4 mmHg (37-60) 04/04/18 09:08 Cord Base Excess -6.8 mEq/L (-13.6--3.2) 04/04/18 09:08 Cord ABG pH 7.29 (7.10-7.37) 04/04/18 09:08 Cord VBG pH 7.36 (7.20-7.42) 04/04/18 09:08 Operative Report - Delivery Pre-op Diagnoses: IUP @ 38 1/7 weeks, prolonged SROM, arrest of dilation and chorioamnionitis Post-op Diagnoses: same History of Prior Section: No Number of Prior Sections: 0 Nulliparous Prior to Delivery: No Indications for Prior Section: Arrest of Dilation, Other (Specify) ( none) Indications for Current Section: Arrest of Dilation, Other (Specify) ( prolonged ROM, chorioamnionitis) Procedure: Unscheduled Surgeon: Navya Sánchez Inspector Electromechanical: Alaina Cornejo Anesthesiologist: Rigo Patel Complications: None Findings: normal uterus, tubes and ovaries Specimen(s)/Path: Placenta IV Fluid (ml): 1,000 EBL: 1200 Cord Gases: Cord Gases Cord Blood PCO2 41.4 mmHg (37-60) 04/04/18 09:08 Cord Base Excess -6.8 mEq/L (-13.6--3.2) 04/04/18 09:08 Cord ABG pH 7.29 (7.10-7.37) 04/04/18 09:08 Cord VBG pH 7.36 (7.20-7.42) 04/04/18 09:08 [place] Data ANH: 04/17/18 Gestational Age: 38 week(s) and 1 day(s) Guzman Delivery Date: 04/04/18 Delivery Time: 08:42 Sex of : Male Score (1 Min): 9 Score (5 Min): 9 ICD10 Worksheet Patient Problems: Problems Problem Status Onset Arrest of dilation, delivered, current hospitalization Acute Chorioamnionitis Acute Delivery by section of full-term Acute Prolonged rupture of membranes Acute - ICD10 Problem Qualifiers (1) Arrest of dilation, delivered, current hospitalization (2) Delivery by section of full-term infant (3) Chorioamnionitis
[2018-04-04] MEDS ORDERED: KETOROLAC 30 MG/1 ML SDV ONE (10:27)
[2018-04-04] MEDS: KETOROLAC 30 MG/1 ML SDV IVP SCH ×2 (10:33→16:35)
--- NOTE | 2018-04-04 11:47 | POSTANESTH ---
Post Anesthetic Evaluation Cardiovascular Status: Normal, Stable Respiratory Status: Normal, Stable Level of Consciousness/Mental Status: Can Participate in Eval Pain Control: Adequate, Prn Tx Ordered Nausea/Vomiting Control: Adequate, Prn Tx Ordered Complications Possibly Related to Anesthesia: None Noted (C section today. Good epidural. Pt happy with anesthesia care)
[2018-04-04] MEDS: ACETAMINOPHEN 325 MG TAB PO SCH ×2 (12:16→16:35)
[2018-04-04] MEDS: IBUPROFEN 600 MG TAB PO SCH ×3 (12:18→23:22)
[2018-04-04] MEDS: FAMOTIDINE 20 MG TAB PO SCH (13:40)
--- NOTE | 2018-04-04 18:28 | OBPP ---
Progress Note Assessment/Plan: Assessment: 37 y/o PPD #1 s/p LTCS with SROM > 72 hours with inadequate labor contractions, arrest of dilation and now chorioamnionitis Plan: I'm adding Lovenox now 12 hours post-op. Good pain control, will gradually increase to reg diet and po pain meds. 04/04/18 08:13 04/04/18 18:21 Subjective/ Course: 04/04/18 18:20 Pt is doing well. She denies pain, nausea has improved. She is attempting to breast feed. Objective: 04/02/18 12:20 Patient ABO/Rh A POSITIVE 04/02/18 12:20 Temp Pulse Resp BP Pulse Ox 36.2 C 77 16 110/78 98 04/04/18 16:00 04/04/18 18:00 04/04/18 18:00 04/04/18 16:00 04/04/18 18:00 Uterine Position/Fundal Height: Umbilicus -1 Uterine Tone: Firm Physical Exam - Physical Exam General Appearance: WD/WN, alert, no apparent distress Neck: non-tender, full range of motion, supple Respiratory: chest non-tender, lungs clear, normal breath sounds Cardiac/Chest: regular rate, rhythm Abdomen: normal bowel sounds, dressing (c/d/i) Extremities: swelling (no), Cara's sign (neg)
[2018-04-04] MEDS: ENOXAPARIN 40 MG/0.4 ML SYR SC SCH (20:18)
[2018-04-04] MEDS: SENNOSIDES/DOCUSATE SODIUM TAB PO SCH (20:21)
[2018-04-04] MEDS: PRENATAL VIT 1 EACH TAB PO SCH (20:21)
[2018-04-05] MEDS: KETOROLAC 30 MG/1 ML SDV IVP SCH ×2 (00:01→06:47)
[2018-04-05] MEDS: ACETAMINOPHEN 325 MG TAB PO SCH ×6 (00:01→23:55)
[2018-04-05] MEDS: diphenhydrAMINE 25 MG CAP PO PRN ×2 (02:44→11:57)
[2018-04-05] MEDS ORDERED: KETOROLAC 30 MG/1 ML SDV IVP SCH (06:15)
[2018-04-05] MEDS: IBUPROFEN 600 MG TAB PO SCH ×4 (06:48→23:55)
[2018-04-05] MEDS: valACYclovir 500 MG TAB PO SCH ×2 (09:57→21:08)
[2018-04-05] MEDS: ENOXAPARIN 40 MG/0.4 ML SYR SC SCH (09:59)
[2018-04-05] MEDS: SENNOSIDES/DOCUSATE SODIUM TAB PO SCH ×2 (09:59→21:05)
[2018-04-05] MEDS: FAMOTIDINE 20 MG TAB PO SCH (10:00)
--- NOTE | 2018-04-05 13:18 | OBPP ---
Progress Note Assessment/Plan: Assessment: POD1 s/p PLTCS for arrest of dilation, chorioamnionitis. - Will start ferrous sulfate BID today. - Continue Lovenox for 6 wks PP due to chorio/. - Cont Celexa. - No fevers, no evolving concerns re chorio, no further abx. - Baby doing well, pain controlled. - Rh pos, Rubella immune. - Cont Valtrex for HSV1 suppression. JM Subjective/ Course: 04/04/18 18:20 Pt is doing well. She denies pain, nausea has improved. She is attempting to breast feed. 04/05/18 13:15 Cielo is doing great this AM - resting, BF going well. Pain well controlled. Baby doing great. Reviewed that she should get on iron sups, continue Celexa, and that we'd be doing six weeks of PP Lovenox due to chorio and section. Objective: 04/05/18 06:30 Patient ABO/Rh A POSITIVE 04/02/18 12:20 Temp Pulse Resp BP Pulse Ox 37.1 C 66 16 96/66 L 100 04/05/18 11:34 04/05/18 11:34 04/05/18 10:00 04/05/18 11:34 04/05/18 11:34 Uterine Position/Fundal Height: At Umbilicus Uterine Tone: Firm Physical Exam - Physical Exam Abdomen: incision (Bandaged, minimal shadowing per RN)
[2018-04-05] MEDS: FERROUS SULFATE 325 MG TAB PO SCH ×2 (14:57→21:06)
--- NOTE | 2018-04-05 15:15 | PDPAINCON ---
Pain Management Consultation Patient referred by : noe - Subjective Pain is: low, well controlled Activity: able to ambulate - Objective Technique: spinal opioid Site: lumbar Sensory and motor exam: block has resolved, no apparent ill effects Vital signs: stable - Assessment/Plan Assessment/Plan: pain well-controlled, continue current mgmt (denies SAMANIEGO, weakness, paresthesias, bowel bladder dysfunction)
[2018-04-05] MEDS: CITALOPRAM 20 MG TAB PO SCH (21:07)
[2018-04-05] MEDS: PRENATAL VIT 1 EACH TAB PO SCH (21:09)
[2018-04-06] MEDS: ACETAMINOPHEN 325 MG TAB PO SCH ×3 (05:59→18:19)
[2018-04-06] MEDS: IBUPROFEN 600 MG TAB PO SCH ×3 (05:59→18:19)
[2018-04-06] MEDS: ENOXAPARIN 40 MG/0.4 ML SYR SC SCH (09:02)
[2018-04-06] MEDS: FERROUS SULFATE 325 MG TAB PO SCH ×2 (09:03→21:57)
[2018-04-06] MEDS: valACYclovir 500 MG TAB PO SCH ×2 (09:03→21:57)
[2018-04-06] MEDS: SENNOSIDES/DOCUSATE SODIUM TAB PO SCH ×2 (09:03→20:33)
[2018-04-06] MEDS: FAMOTIDINE 20 MG TAB PO SCH (11:44)
--- NOTE | 2018-04-06 12:12 | OBPP ---
Progress Note Assessment/Plan: Assessment: 37 y/o PPD #2 s/p LTCS with SROM > 72 hours with inadequate labor contractions, arrest of dilation and now chorioamnionitis Plan: Cielo is healing well from and post op perspective without signs/sx's of infection. She has good pain control and return of bowel function. Breast feeding is a struggle, she is trying to encourage her milk to come in and baby is cluster feeding, but needing supplementation. She is emotionally fragile, because she lost her mother 1 year ago and is trying to handle the surgery and breast feeding stresses. I feel she needs support with baby's weight loss and emotional support for family stresses. They will stay likely until Saturday, POD #4. 04/04/18 08:13 04/04/18 18:21 04/06/18 12:12 Subjective/ Course: 04/04/18 18:20 Pt is doing well. She denies pain, nausea has improved. She is attempting to breast feed. 04/05/18 13:15 Cielo is doing great this AM - resting, BF going well. Pain well controlled. Baby doing great. Reviewed that she should get on iron sups, continue Celexa, and that we'd be doing six weeks of PP Lovenox due to chorio and section. 04/06/18 12:07 Pt is doing well today. She has good pain control with PO meds and has only needed Oxy @ night. She is ambulating, voiding and has min lochia. She had + BM x 2 without difficulty. They have been struggling with breast feeding. She feels her milk is not coming in yet and the baby has lost >10% body weight. They began supplementing with donor milk and he cluster fed all night long last night. They are exhausted and trying to rest today after supplementing the baby and they will try again in a couple of hours. We discussed d/c home tomorrow or Saturday. Sivakumar, the baby's dad has MS and needs to get an IV infusion tomorrow on a very tight schedule. Her sister is going to come to help Cielo tomorrow day, but with the BF issues and continued surveillance of baby, she feels they will not be ready to d/c home tomorrow. Objective: 01/05/19 06:30 Patient ABO/Rh A POSITIVE 04/02/18 12:20 Temp Pulse Resp BP Pulse Ox 37.0 C 100 20 106/80 96 04/06/18 11:23 04/06/18 11:23 04/06/18 11:23 04/06/18 11:23 04/06/18 11:23 Uterine Position/Fundal Height: Umbilicus -2 Uterine Tone: Firm Physical Exam - Physical Exam General Appearance: alert, no apparent distress Neck: non-tender, full range of motion, supple Respiratory: chest non-tender, lungs clear, normal breath sounds Cardiac/Chest: regular rate, rhythm Abdomen: normal bowel sounds, incision (c/d/i) Extremities: swelling (no), Cara's sign (neg)
[2018-04-06] MEDS: PRENATAL VIT 1 EACH TAB PO SCH (21:57)
[2018-04-06] MEDS: CITALOPRAM 20 MG TAB PO SCH (21:58)
[2018-04-07] MEDS: ACETAMINOPHEN 325 MG TAB PO SCH ×5 (01:37→19:35)
[2018-04-07] MEDS: IBUPROFEN 600 MG TAB PO SCH ×5 (01:38→19:34)
[2018-04-07] MEDS: valACYclovir 500 MG TAB PO SCH ×2 (11:30→19:38)
[2018-04-07] MEDS: ENOXAPARIN 40 MG/0.4 ML SYR SC SCH (11:30)
[2018-04-07] MEDS: FERROUS SULFATE 325 MG TAB PO SCH ×2 (11:30→19:38)
[2018-04-07] MEDS ORDERED: CITALOPRAM 20 MG TAB PO SCH ×2 (11:45→21:00)
[2018-04-07] MEDS: FAMOTIDINE 20 MG TAB PO SCH (12:17)
[2018-04-07] MEDS: SENNOSIDES/DOCUSATE SODIUM TAB PO SCH ×2 (19:11→23:43)
[2018-04-07] MEDS: PRENATAL VIT 1 EACH TAB PO SCH (19:38)
--- NOTE | 2018-04-07 20:11 | OBPP ---
Progress Note Assessment/Plan: Assessment: 37 yo pod# 3 s/p PLTCS for protracted labor and chorio anemia anxiety breast feeding Plan: 04/07/18 20:08 Subjective/ Course: 04/04/18 18:20 Pt is doing well. She denies pain, nausea has improved. She is attempting to breast feed. 04/05/18 13:15 Cielo is doing great this AM - resting, BF going well. Pain well controlled. Baby doing great. Reviewed that she should get on iron sups, continue Celexa, and that we'd be doing six weeks of PP Lovenox due to chorio and section. 04/06/18 12:07 Pt is doing well today. She has good pain control with PO meds and has only needed Oxy @ night. She is ambulating, voiding and has min lochia. She had + BM x 2 without difficulty. They have been struggling with breast feeding. She feels her milk is not coming in yet and the baby has lost >10% body weight. They began supplementing with donor milk and he cluster fed all night long last night. They are exhausted and trying to rest today after supplementing the baby and they will try again in a couple of hours. We discussed d/c home tomorrow or Saturday. Sivakumar, the baby's dad has MS and needs to get an IV infusion tomorrow on a very tight schedule. Her sister is going to come to help Cielo tomorrow day, but with the BF issues and continued surveillance of baby, she feels they will not be ready to d/c home tomorrow. 04/07/18 20:08 patient is doing well today. has had some emotional ups and downs for the last few hours but got some rest and is doing well now. feels over whelmed by some things and feels like she is going down the rabbit hole with anxiety. denies thoughts of self harm or harm to baby. has great support system. discussed post wellness center, mood precautions and strategies to help. pain is well controlled. has had several bowel movements. working on breast feeding. normal lochia. very grateful for her experience. Objective: 04/05/18 06:30 Patient ABO/Rh A POSITIVE 04/02/18 12:20 Temp Pulse Resp BP Pulse Ox 36.5 C 95 16 106/73 98 04/07/18 09:00 04/07/18 09:00 04/07/18 09:00 04/07/18 09:00 04/07/18 09:00 Physical Exam - Physical Exam Neck: non-tender, full range of motion Respiratory: chest non-tender, lungs clear, normal breath sounds Cardiac/Chest: normal peripheral pulses, regular rate, rhythm Abdomen: normal bowel sounds, non-tender Extremities: normal range of motion, non-tender, normal inspection, normal capillary refill Skin: normal color, warm/dry Neuro/Psych: no motor/sensory deficits, alert, normal mood/affect, oriented x 3
[2018-04-08] MEDS: ACETAMINOPHEN 325 MG TAB PO SCH ×2 (01:18→07:30)
[2018-04-08] MEDS: IBUPROFEN 600 MG TAB PO SCH ×2 (01:18→07:30)
[2018-04-08 07:56] VITALS: BP 109/74
[2018-04-08] MEDS: valACYclovir 500 MG TAB PO SCH (08:39)
[2018-04-08] MEDS: ENOXAPARIN 40 MG/0.4 ML SYR SC SCH (08:39)
[2018-04-08] MEDS: FERROUS SULFATE 325 MG TAB PO SCH (08:39)
[2018-04-08] MEDS: SENNOSIDES/DOCUSATE SODIUM TAB PO SCH (10:30)
[2018-04-08] MEDS: FAMOTIDINE 20 MG TAB PO SCH (10:30)
--- NOTE | 2018-04-08 11:17 | OBPP ---
Progress Note Assessment/Plan: Assessment: POD 4 s/p primary c/s for arrest and chorio anxiety/depr on Celexa Erythema Multiforme HSV I recurrent preg loss and protein C def - on Lovenox anemia Plan: D/C home will increase celexa to 20 mg/d and pt to see therapist tomorrow at noon from [facility] cont valtrex BID cont Lovenox 40 daily x 6 wks 04/08/18 11:05 04/08/18 11:19 Subjective/ Course: 04/04/18 18:20 Pt is doing well. She denies pain, nausea has improved. She is attempting to breast feed. 04/05/18 13:15 Cielo is doing great this AM - resting, BF going well. Pain well controlled. Baby doing great. Reviewed that she should get on iron sups, continue Celexa, and that we'd be doing six weeks of PP Lovenox due to chorio and section. 04/06/18 12:07 Pt is doing well today. She has good pain control with PO meds and has only needed Oxy @ night. She is ambulating, voiding and has min lochia. She had + BM x 2 without difficulty. They have been struggling with breast feeding. She feels her milk is not coming in yet and the baby has lost >10% body weight. They began supplementing with donor milk and he cluster fed all night long last night. They are exhausted and trying to rest today after supplementing the baby and they will try again in a couple of hours. We discussed d/c home tomorrow or Saturday. Sivakumar, the baby's dad has MS and needs to get an IV infusion tomorrow on a very tight schedule. Her sister is going to come to help Cielo tomorrow day, but with the BF issues and continued surveillance of baby, she feels they will not be ready to d/c home tomorrow. 04/07/18 20:08 patient is doing well today. has had some emotional ups and downs for the last few hours but got some rest and is doing well now. feels over whelmed by some things and feels like she is going down the rabbit hole with anxiety. denies thoughts of self harm or harm to baby. has great support system. discussed post wellness center, mood precautions and strategies to help. pain is well controlled. has had several bowel movements. working on breast feeding. normal lochia. very grateful for her experience. 04/08/18 11:21 pt doing well physically. Seems hard to focus and reports long night of cluster feeding and hasn't slept. Disc discharge with pt and husb. Pain well controlled with ibu/tyl and rec cont on that at home for couple days. bld is light and nontender uterus. urinating fine. has had BM without problems. hydrating well. radha reg diet. Objective: 04/05/18 06:30 Patient ABO/Rh A POSITIVE 04/02/18 12:20 Temp Pulse Resp BP Pulse Ox 36.4 C 81 14 109/74 97 04/08/18 07:52 04/08/18 07:52 04/08/18 07:52 04/08/18 07:52 04/08/18 07:52 Uterine Position/Fundal Height: Umbilicus -2 Uterine Tone: Firm Physical Exam - Physical Exam Abdomen: non-tender (approp post op tenderness), soft, incision (incision CDI) Extremities: non-tender, pedal edema (none) Skin: normal color, warm/dry Neuro/Psych: alert, normal mood/affect
--- NOTE | 2018-04-08 11:58 | OBGCSDC ---
General Delivery Information - General Info : 6 Para: 1 Abortions: 6 Type: Primary L&D Analgesia/Anesthesia Type: Epidural Admission Date: 04/02/18 Labs: Patient ABO/Rh A POSITIVE 04/02/18 12:20 Hct 26.0 % (38.0-47.0) L 04/05/18 06:30 - Hospital Course Antepartum: 04/03/18 10:43 Protein C deficiency: Last dose of heparin was 2000 on 04/01/18 - will be 24 hrs s /p her last dose this evening so probably OK for regional anesthesia, will check coags on the way in today. Per recent MFM consult - May not need PP Lovenox as long as new risk factors (infection, Csection, PIH, etc) don't present themselves during labor and delivery. Polyhydramnios: Failed Glucola and passed 3 hr GTT. HSV1: Valtrex BID suppression. 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 IVF : Normal echo. Anxiety: Celexa 10mg qHS. Suspected macrosomia: EFW 91% at 35 wks. pyelectasis: 7.8mm on 35 wk scan, MFM recommended US and peds urology consult if needed after . Intrapartum: 04/03/18 10:35 Pt is breathing through her ctx's and states minimal relief with Nitrous. Most of her pain is in her back and hips, pain 7-8/10. She is requesting an epidural at this time. 04/03/18 13:12 Pt is comfortable, s/p epidural with no complaints. 04/03/18 17:26 Pt doing well, no complaints. She would like something to eat. 04/04/18 02:10 Pt is c/o SAMANIEGO at this time. She is comfortable and has used the bolus button. 04/04/18 04:45 Pt is sleeping and states SAMANIEGO resolved. 04/04/18 07:15 Pt is c/o feeling shaky, but no chills. She is starting to feel more back pain, but using bolus for relief. 04/04/18 08:11 I cam in this am to take over care. Pt is feeling a little better now, with antibiotics on board. She is comfortable with her epidural and now ready for a c section. : 04/04/18 18:20 Pt is doing well. She denies pain, nausea has improved. She is attempting to breast feed. 04/05/18 13:15 Cielo is doing great this AM - resting, BF going well. Pain well controlled. Baby doing great. Reviewed that she should get on iron sups, continue Celexa, and that we'd be doing six weeks of PP Lovenox due to chorio and section. 04/06/18 12:07 Pt is doing well today. She has good pain control with PO meds and has only needed Oxy @ night. She is ambulating, voiding and has min lochia. She had + BM x 2 without difficulty. They have been struggling with breast feeding. She feels her milk is not coming in yet and the baby has lost >10% body weight. They began supplementing with donor milk and he cluster fed all night long last night. They are exhausted and trying to rest today after supplementing the baby and they will try again in a couple of hours. We discussed d/c home tomorrow or Saturday. Sivakumar, the baby's dad has MS and needs to get an IV infusion tomorrow on a very tight schedule. Her sister is going to come to help Cielo tomorrow day, but with the BF issues and continued surveillance of baby, she feels they will not be ready to d/c home tomorrow. 04/07/18 20:08 patient is doing well today. has had some emotional ups and downs for the last few hours but got some rest and is doing well now. feels over whelmed by some things and feels like she is going down the rabbit hole with anxiety. denies thoughts of self harm or harm to baby. has great support system. discussed post wellness center, mood precautions and strategies to help. pain is well controlled. has had several bowel movements. working on breast feeding. normal lochia. very grateful for her experience. 04/08/18 11:21 pt doing well physically. Seems hard to focus and reports long night of cluster feeding and hasn't slept. Disc discharge with pt and husb. Pain well controlled with ibu/tyl and rec cont on that at home for couple days. bld is light and nontender uterus. urinating fine. has had BM without problems. hydrating well. radha reg diet. Vaginal - Diagnosis Amniotic Fluid Color: Clear - Procedures Non-surgical Procedures: Amniotomy (of forebag - clear), [facility] - Delivery Providers Surgeon: Navya Sánchez [employer] Worker: Alaina Cornejo Anesthesiologist: Rigo Patel - Delivery Number of Prior Sections: 0 Indications for Current Section: Arrest of Dilation, Other (Specify) ( prolonged ROM, chorioamnionitis) Non-surgical Procedures: Amniotomy (of forebag - clear), [facility] Surgical Procedures: Unscheduled Intra-op Complications: None EBL: 1200 Data ANH: 04/17/18 Gestational Age: 38 week(s) and 5 day(s) Guzman Delivery Date: 04/04/18 Delivery Time: 08:42 Sex of : Male Weight (gm): 3546 kg Score (1 Min): 9 Score (5 Min): 9 Discharge Information - Discharge Information Condition: Good Instruction/Follow Up: See Instruction Sheet, One Week (with therapist ), Two Weeks, Six Weeks
== END 2018-04-08 14:15 | disposition home or self-care (01) | DRG 786 ==
LOC: OBSVTOIN 09:30 → FLD 09:30 → FOB 04-04 11:26
PROVIDERS: ADMIT Obstetrics & Gynecology; ATTEND Obstetrics & Gynecology
DX: O42.12 Full-term premature rupture of membranes, onset of labor more than 24 hours following rupture (principal); O41.1230 Chorioamnionitis, third trimester, not applicable or unspecified; O62.0 Primary inadequate contractions; O99.12 Other diseases of the blood and blood-forming organs and certain disorders involving the immune mechanism complicating childbirth; D68.59 Other primary thrombophilia; O76 Abnormality in fetal heart rate and rhythm complicating labor and delivery; O99.02 Anemia complicating childbirth; O36.63X0 Maternal care for excessive fetal growth, third trimester, not applicable or unspecified; O99.344 Other mental disorders complicating childbirth; O40.3XX0 Polyhydramnios, third trimester, not applicable or unspecified; O99.72 Diseases of the skin and subcutaneous tissue complicating childbirth; O09.293 Supervision of pregnancy with other poor reproductive or obstetric history, third trimester; D64.9 Anemia, unspecified; F41.9 Anxiety disorder, unspecified; L51.9 Erythema multiforme, unspecified; Z79.01 Long term (current) use of anticoagulants; Z3A.38 38 weeks gestation of pregnancy; Z37.0 Single live birth
CPT/HCPCS: J0290; J1580; J1650; J1885; J2210; J2274; J2370; J2405; J2590; J2765; J3010; J3105; J7613

== ENCOUNTER → 2018-08-20 | Outpatient (CLI) | payer OTHER | LOC: FLACT 11:26 ==